=== PATIENT | male | born 1980 | race Caucasian/White ===

== ENCOUNTER 2019-07-31 08:59 | Emergency (ER) | payer SELFPAY ==
[~2019-07-31] VITALS: Ht 172.7 cm; Wt 66.2 kg
[2019-07-31 09:11] VITALS: Ht 172.7 cm; Wt 66.2 kg
[2019-07-31 12:19] VITALS: BP 134/77
== END 2019-07-31 12:19 | disposition home or self-care (01) ==
LOC: ED 08:59
DX: S01.01XA Laceration without foreign body of scalp, initial encounter (principal); S20.211A Contusion of right front wall of thorax, initial encounter; L03.211 Cellulitis of face; W19.XXXA Unspecified fall, initial encounter; Y93.89 Activity, other specified; Y92.89 Other specified places as the place of occurrence of the external cause; Y99.8 Other external cause status

== ENCOUNTER 2019-08-14 05:13 | Emergency (ER) | payer MEDICAID ==
[~2019-08-14] VITALS: Ht 172.7 cm; Wt 75.7 kg
[2019-08-14 07:11] LABS: BASOPHIL % 0.5 % (0-2); PLATELET COUNT 288 x10^3mcL (130-400); RED CELL DISTRIBUTION WIDTH 13.7 % (11.5-14.5)
[2019-08-14 07:24] LABS: ALBUMIN 3.7 g/dL (3.4-5.0); ALKALINE PHOSPHATASE 71 U/L (46-116); ALT/SGPT 75 U/L (16-63); AST/SGOT 40 U/L (15-37); BILIRUBIN TOTAL 0.3 mg/dL (0.20-1.00); CALCIUM 9.3 mg/dL (8.5-10.1); CARBON DIOXIDE 27.6 mmol/L (21-32); CHLORIDE SERUM 107 mmol/L (98-107); CREATININE SERUM 1.2 mg/dL (0.7-1.3); GFR1 > 60 mL/min; GLUCOSE SERUM 113 mg/dL (74-106); HDL CHOLESTEROL 55 mg/dL (40-60); LIPASE 163 IU/L (73-393); POTASSIUM SERUM 3.8 mmol/L (3.5-5.1); SODIUM SERUM 140 mmol/L (136-145); TOTAL PROTEIN, SERUM 7.7 g/dL (6.4-8.2); TRIGLYCERIDES 38 mg/dL (<150)
[2019-08-14 07:27] LABS: CHOLESTEROL 125 mg/dL (<200); CHOLESTEROL/HDL RATIO 2.3
[2019-08-14 08:18] LABS: FREE T4 1.1 ng/dL (0.76-1.46); FREE THYROXINE INDEX 2.8 ug/dL (1.4-4.5); T4(THYROXINE) 8.3 ug/dL (4.7-13.3)
[2019-08-14 08:24] LABS: T3 TOTAL 1.47 ng/mL
[2019-08-14 09:52] LABS: microscopic required? NO
[2019-08-14 10:18] VITALS: BP 124/72
[2019-08-14 10:39] LABS: AMPHETAMINE QUAL UR NONE DETECTED (See below)
[2019-08-14 10:50] LABS: urine erythrocyte NEGATIVE (NEGATIVE)
== END 2019-08-14 10:00 | disposition home or self-care (01) ==
LOC: ED 05:13
PROVIDERS: Specialist
DX: R10.13 Epigastric pain (principal); R11.0 Nausea
CPT/HCPCS: 84439; G0480; J1885; J3490; J7030; Q0092